=== PATIENT | female | born 1960 | race Caucasian/White ===

== ENCOUNTER 2020-04-09 10:56 | Emergency (ER) | payer BC, SELFPAY ==
--- NOTE | ~2020-04-09 | XR_ITS ---
EXAMINATION: XR chest 1V portable DATE: 04/09/2020 11:16 INDICATION: Dyspnea on exertion. COVID-19 positive. TECHNIQUE: A single frontal view of the chest was obtained. COMPARISON: None. FINDINGS: The chest demonstrates clear lungs without pneumonia, pleural effusion, or pneumothorax. Th e heart size is normal. IMPRESSION: 1. No acute cardiopulmonary disease. Reviewed, dictated and finalized at location A. OF OPERATION AND LOGISTICS
[2020-04-09 10:59] VITALS: BP 121/87; PULSE 77; RESP 16; TEMP 36.8; O2SAT 97
[2020-04-09 11:03] VITALS: PULSE 72
--- NOTE | 2020-04-09 11:06 | ECG_ITS ---
Measurements Intervals [place] Rate: 68 P: 70 MD: 116 QRS: 53 QRSD: 94 T: 24 QT: 366 QTc: 391 Interpretive Statements SINUS RHYTHM WITH SHORT MD INTERVAL BORDERLINE ST-T WAVE ABNORMALITY- ANTEROLAT/INF LEADS BASELINE WANDER- I, II, III, AVF BORDERLINE ECG Electronically Signed On 04-09-2020 17:57:47 WAREHOUSE SHIPPING ASSOCIATE by Daquan Ramos D.O.
--- NOTE | 2020-04-09 12:12 | ED.SOB ---
HPI - SOB/Dyspnea General Chief Complaint: Shortness of Breath/Dyspnea Stated Complaint: fever, shortness of breath, covid-19 Time Seen by Provider: 04/09/20 11:24 History of Present Illness HPI Narrative: Patient is a 60-year-old female who presents ER with shortness of breath. She was diagnosed with COVID-19 on 03/30/2020. Over the last 2 days she started developing fevers and chills and some shortness of breath with exertion. Mild cough nonproductive. No chest pain. Had recently traveled to [place]. Related Data Allergies Allergy/AdvReac Type Severity Reaction Status Date / Time meperidine Allergy Intermediate Vomiting Verified 04/09/20 11:01 propoxyphene Allergy Intermediate Vomiting Verified 04/09/20 11:01 Review of Systems Review of Systems: All systems reviewed & are unremarkable except as noted in HPI and below Constitutional: Constitutional: Reports chills, Reports fatigue and Reports fever(s) ENT: Denies nasal congestion and Denies sore throat Cardiovascular: Cardiovascular: Denies chest pain Respiratory: Respiratory: Reports cough, Reports dyspnea and Denies wheezing PMFSH Past Medical History Medical History (Updated 04/09/20 @ 12:19 by Avel Eid MD) Alopecia Hypothyroidism (acquired) Surgical History Surgical History (Updated 04/09/20 @ 12:15 by Avel Eid MD) No pertinent past surgical history Family History Family History Other Asthma Depression Family history of arthritis Family history of cardiovascular disease Family history of chronic obstructive pulmonary disease Family history of lung cancer Family history of malignant neoplasm Family history of pancreatic cancer Social History Social History Smoking status: Never smoker Alcohol intake: never Gender identity (if verbalized by the patient): Female Exam Narrative: Exam Narrative: GENERAL: Well-appearing, well-nourished, and in no acute distress. HEAD: Normocephalic, atraumatic. CHEST: Clear to auscultation. No respiratory distress. HEART: Regular rate and rhythm. Normal peripheral pulses. EXTREMITIES: Normal range of motion. No edema. NEURO: Alert and oriented x3. PSYCH: Normal mood and affect. Course Course Emergency Course: Patient informed of results. No hypoxia no wheezing. Discharge home. Vital Signs Vital signs: Vital Signs Temperature 98.2 F 04/09/20 10:59 Pulse Rate 77 04/09/20 10:59 Respiratory Rate 16 04/09/20 10:59 Blood Pressure 121/87 04/09/20 10:59 Pulse Oximetry 97 04/09/20 10:59 Temperature 98.2 F 04/09/20 10:59 Pulse Rate 72 04/09/20 11:03 Respiratory Rate 16 04/09/20 10:59 Blood Pressure 121/87 04/09/20 10:59 Pulse Oximetry 97 04/09/20 10:59 MDM - SOB/Dyspnea Imaging Data Radiologist's impression: ITS Impressions Chest X-Ray 04/09/20 11:18 IMPRESSION: 1. No acute cardiopulmonary disease. Discharge Plan Discharge Clinical Impression: Dyspnea Patient Disposition: Home, Self-Care Condition: Stable Instructions: Dyspnea (ED) Additional Instructions: Return the ER if you have worsening shortness of breath, you have audible wheezing, you cannot keep down food or water, you have additional concerns. Prescriptions: No Action levothyroxine [Synthroid] 25 mcg tablet 25 mcg PO DAILY 90 Days Qty: 90 RF: 3 Follow-up/Referrals: Jose Fagan Jr., MD [Primary Care Provider] - 1 Week
[2020-04-09 12:25] VITALS: BP 117/80; PULSE 87; RESP 24; O2SAT 98
== END 2020-04-09 12:26 | disposition home or self-care (01) ==
PROVIDERS: Emergency Provider Emergency Medicine; PCP Internal Medicine
DX: U07.1 COVID-19 (principal); R06.00 Dyspnea, unspecified; E03.9 Hypothyroidism, unspecified; R94.31 Abnormal electrocardiogram [ECG] [EKG]
CPT/HCPCS: 71045; 93005; 99283

== ENCOUNTER → 2020-05-08 10:14 | Outpatient (CLI) | payer BC, SELFPAY ==
--- NOTE | ~2020-05-08 | MM_ITS ---
EXAMINATION: MM screening sera BI w juan c HISTORY: Screening TECHNIQUE: Craniocaudal and mediolateral oblique 3-D tomosynthesis images were obtained and synthetic 2-D images were generated. CAD analysis was submitted and interpreted. COMPARISON: Comparison to multiple prior studies sequentially, with oldest reviewed study dated 05/02. BREAST PARENCHYMAL COMPOSITION: There are scattered areas of fibroglandular density. FINDINGS: There is no evidence of suspicious mass, calcification, or architectural distortion to sugg est malignancy in either breast. There has been no suspicious interval change. IMPRESSION: 1. No mammographic evidence of malignancy. 2. Recommend routine screening mammography in one year. BI-RADS Category 1: Negative Reviewed, dictated and finalized at location A. ICULUM AND INSTRUCTION DIRECTOR
== END ==
PROVIDERS: Visit Provider Obstetrics & Gynecology
DX: Z12.31 Encounter for screening mammogram for malignant neoplasm of breast (principal)
CPT/HCPCS: 77063; 77067

== ENCOUNTER → 2020-08-18 10:18 | Outpatient (CLI) | payer BC, SELFPAY ==
--- NOTE | ~2020-08-18 | US_ITS ---
EXAMINATION: US thyroid DATE: 08/18/2020 10:33 INDICATION: Goiter TECHNIQUE: Multiple ultrasound images of the thyroid were obtained. COMPARISON: None. FINDINGS: The right thyroid lobe measures 5.2 x 1.4 x 1.4 cm. The left thyroid lobe measures 3.2 x 1.0 x 1.3 c m. Thyroid isthmus measures 3 mm in thickness. Anechoic cystic TI RADS 1 nodules measuring 4 mm the r ight thyroid lobe and 3 mm in the left thyroid lobe. There is normal echotexture, echogenicity and va scular flow throughout the thyroid gland. IMPRESSION: 1. A couple likely benign subcentimeter cystic thyroid nodules which do not meet criteria for biopsy or follow-up. Recommend clinical follow-up with repeat imaging if there are changes on physical exam. Reviewed, dictated and finalized at location B. IMPRESSION: 1. A couple likely benign subcentimeter cystic thyroid nodules which do not osiris t criteria for biopsy or follow-up. Recommend clinical follow-up with repeat im aging if there are changes on physical exam.
== END ==
PROVIDERS: Visit Provider Internal Medicine Endocrinology, Diabetes & Metabolism
DX: E04.9 Nontoxic goiter, unspecified (principal)
CPT/HCPCS: 76536

== ENCOUNTER → 2020-09-23 09:40 | Outpatient (CLI) | payer BC, SELFPAY ==
--- NOTE | ~2020-09-23 | US_ITS ---
EXAMINATION:US venous doppler LE LT INDICATION:Varicose veins. TECHNIQUE: Multiple grayscale, color flow and Doppler images of the left lower extremity deep venous systems were obtained and reviewed. COMPARISON: Ultrasound dated 02/14/2016. FINDINGS: The common femoral, superficial femoral and popliteal veins demonstrate normal respiratory variation, augmentation and compressibility. Color flow is also seen within the posterior tibial, pe roneal, greater saphenous and profunda veins. IMPRESSION: 1: No lower extremity deep venous thrombosis. Reviewed, dictated and finalized at location A.
== END ==
PROVIDERS: PCP Family Medicine Sports Medicine; Visit Provider Obstetrics & Gynecology
DX: I83.90 Asymptomatic varicose veins of unspecified lower extremity (principal)
CPT/HCPCS: 93971

== ENCOUNTER 2020-11-10 12:13 | Outpatient (CLI) | payer BC, SELFPAY ==
--- NOTE | ~2020-11-10 | MR_ITS ---
EXAMINATION: MR shoulder LT w con DATE: 11/10/2020 13:55 INDICATION: Left shoulder pain TECHNIQUE: Magnetic resonance imaging (MRI) of the left shoulder was performed following intra-artic ular gadolinium contrast injection and without intravenous contrast. Details of the glenohumeral join t injection have been dictated separately. Sequences included axial T2-weighted FS FSE, axial T1-tracy ghted FS FSE, coronal oblique T1-weighted FS FSE, coronal oblique T2-weighted FSE, sagittal T2-weight ed FS FSE, sagittal T1-weighted FSE, and ABER (abduction external rotation) T1-weighted FS FSE. COMPARISON: Left shoulder radiographs dated 10/12/2020 and MRI dated 05/24/2019 FINDINGS: Coracoacromial arch: The acromion undersurface is curved in morphology (type II). There is prominent thickening of the cor acoacromial ligament at its acromial insertion. Mild acromioclavicular osteoarthritis. Rotator cuff: Moderate supraspinatus and mild infraspinatus tendinopathy. There is a small mild articular sided tea r at the anterior most and superior facet footplate of the supraspinatus tendon which measures approx imately 3 mm AP and involves less than one half of the tendon thickness. Mild subscapularis tendinopa thy. There is mild intrasubstance contrast imbibition in the distal tendon without evident articular sided tear defect and this may result from intrasubstance extravasation of contrast at the site of in jection. Normal rotator cuff muscle bulk and signal. Biceps tendon, glenoid labrum and glenohumeral cartilage: Long head of the biceps tendon is intact. Glenohumeral cartilage is normal. Small mild partial-thickn ess tear along the articular surface of the 12:30 position of the superior glenoid labrum. Remainder of the labrum is normal. Bones and other: Normal marrow signal with no edema, fracture or abnormal marrow replacing process. No abnormal fluid signal at the subacromial/subdeltoid bursa to suggest bursitis. IMPRESSION: 1. Moderate supraspinatus and mild infraspinatus and subscapularis tendinopathy with small mild artic ular sided tear at the anteriormost footplate of the supraspinatus tendon. 2. Small mild tear just anterior to the 12:00 position of the superior glenoid labrum. 3. Reviewed, dictated and finalized at location A. IMPRESSION: 1. Moderate supraspinatus and mild infraspinatus and subscapularis tendinopathy with small mild articular sided tear at the anteriormost footplate of the supr aspinatus tendon. 2. Small mild tear just anterior to the 12:00 position of the superior glenoid labrum. 3.
--- NOTE | ~2020-11-10 | XR_ITS ---
EXAMINATION: XR fl inj shoulder LT - MR/CT EXAM DATE: 11/10/2020 13:12 INDICATION: M25.512 - Pain in left shoulder . No history of dislocation. TECHNIQUE: This procedure was performed by Dr. Jason De Paz, radiologist. I discussed procedure inclu ding the risks, benefits and alternatives with the patient. Risks discussed included bleeding and inf ection. The patient understood the risks and agreed to proceed. A time-out was performed to verify the patient's name, date of , and procedure. The skin over lying the left shoulder joint was prepped and draped in usual sterile fashion. Anesthetic was admini stered with 2 milliliters 1% lidocaine subcutaneously. A 22 G needle was advanced under fluoroscopic guidance into the joint. A total of 10 mL of 1:200 of 529 mg/mL Multihance, 1:4 lidocaine, and 1:4 Omnipaque 240 was instilled. The needle was removed and the entry site was cleaned and dressed. Th ere were no immediate complications. Pulsed dose reduction fluoroscopy was used with fluoroscopic ti me of 0.1. The DAP for this procedure was 0.05 Gycm2. A total of 4 images obtained for the exam. Th e procedure was performed on 11/10/2020. FINDINGS: Real-time fluoroscopy demonstrates the needle and contrast in the left shoulder joint. IMPRESSION: Successful left shoulder joint injection for subsequent imaging. Reviewed, dictated and finalized at location A.
== END 2020-11-10 12:14 ==
LOC: MICIMG 12:14
PROVIDERS: Visit Provider Orthopaedic Surgery
DX: M25.512 Pain in left shoulder (principal); M75.102 Unspecified rotator cuff tear or rupture of left shoulder, not specified as traumatic
CPT/HCPCS: 23350; 73222; A9577; Q9966

== ENCOUNTER → 2020-12-08 08:05 | Outpatient (CLI) | payer BC, SELFPAY ==
--- NOTE | ~2020-12-08 | US_ITS ---
EXAMINATION: US right upper quadrant EXAM DATE: 12/08/2020 08:32 INDICATION: Elevated liver enzymes. TECHNIQUE: Multiple grayscale and Doppler images of the abdomen right upper quadrant were obtained (b y a technologist who performed the scan) and subsequently reviewed. There is no prior study for karla hartman. FINDINGS: The pancreatic head and body are normal in appearance. The pancreatic tail is not visualized. The l iver has normal echogenicity and contour. There are no focal liver lesions identified. There is no evidence of intrahepatic biliary duct dilation. Portal venous flow was seen in the hepatopedal, nor mal direction and has normal Doppler waveform. No right-sided hydronephrosis. Common bile duct measures 4 mm, which is normal. The gallbladder wall is normal in thickness, with ex pected amount of distention. No sonographic evidence of pericholecystic fluid. There is no cholelit hiases. Technologist performing exam reports patient did not demonstrate sonographic Medrano's sign. Please note that this sign is less reliable in patients who have received pain medication. IMPRESSION: Unremarkable abdominal ultrasound exam. Reviewed, dictated and finalized at location D.
== END ==
PROVIDERS: Visit Provider Internal Medicine Endocrinology, Diabetes & Metabolism
DX: R74.01 Elevation of levels of liver transaminase levels (principal)
CPT/HCPCS: 76705

== ENCOUNTER → 2021-03-30 12:05 | Outpatient (CLI) | payer OTHER, BC, SELFPAY ==
--- NOTE | ~2021-03-30 | US_ITS ---
EXAMINATION: US soft tissue head and neck DATE: 03/30/2021 12:28 INDICATION: Neck pain. Neck lumps. TECHNIQUE: Multiple grayscale and Doppler ultrasound images of the neck were obtained. COMPARISON: None FINDINGS: There are normal lymph nodes in the neck bilaterally. IMPRESSION: 1. No abnormal neck mass or lymphadenopathy. Reviewed, dictated and finalized at location A.
== END ==
PROVIDERS: Visit Provider Otolaryngology
DX: M54.2 Cervicalgia (principal)
CPT/HCPCS: 76536

== ENCOUNTER → 2021-07-16 10:38 | Outpatient (CLI) | payer OTHER, BC, SELFPAY ==
--- NOTE | ~2021-07-16 | MR_ITS ---
EXAMINATION: MR brain/brain stem wo/w con DATE: 07/16/2021 11:37 INDICATION: Paresthesia. Right facial numbness. TECHNIQUE: Magnetic resonance imaging (MRI) of the brain and brainstem was performed without and with 14 mL MultiHance intravenous contrast. Sequences included sagittal and axial T1-weighted FSE, axial diffusion-weighted FS EPI, axial T2*-weighted GRE, axial T2-weighted FLAIR Propeller, and axial T2-we ighted Propeller. Postcontrast sequences included axial and coronal T1-weighted FSE. Apparent diffusi on coefficient (ADC) maps were created. COMPARISON: Brain MRI 02/20/2005 FINDINGS: There is no intracranial hemorrhage, acute infarction, or abnormal intracranial mass lesion . The ventricles are normal in size. There is mild mucosal thickening in the ethmoid sinuses. The orb its are normal. The mastoid air cells are normal. IMPRESSION: 1. Normal brain. Reviewed, dictated and finalized at location A. P TREATMENT OPERATOR IMPRESSION: 1. Normal brain.
[2021-07-16 11:13] LABS: Estimated Glomerular Filt Rate > 60
== END ==
PROVIDERS: Visit Provider Family Medicine Sports Medicine
DX: R20.2 Paresthesia of skin (principal)
CPT/HCPCS: 70553; A9577

== ENCOUNTER → 2021-07-26 12:15 | Outpatient (CLI) | payer OTHER, BC, SELFPAY ==
--- NOTE | ~2021-07-26 | MM_ITS ---
EXAMINATION: MM screening sera BI w juan c HISTORY: Screening mammogram TECHNIQUE: Craniocaudal and mediolateral oblique 3-D tomosynthesis images were obtained and synthetic 2-D images were generated. CAD analysis was submitted and interpreted. COMPARISON: 05/08/2020, 05/20/2019, 05/13/2018 bilateral screening mammogram examinations BREAST PARENCHYMAL COMPOSITION: There are scattered areas of fibroglandular density. FINDINGS: There is no evidence of suspicious mass, calcification, or architectural distortion to sugg est malignancy in either breast. There has been no suspicious interval change. IMPRESSION: 1. No mammographic evidence of malignancy. 2. Recommend routine screening mammography in one year. BI-RADS Category 1: Negative Reviewed, dictated and finalized at location A. NO ASSISTANT MANAGER
== END ==
PROVIDERS: Visit Provider Obstetrics & Gynecology
DX: Z12.31 Encounter for screening mammogram for malignant neoplasm of breast (principal)
CPT/HCPCS: 77063; 77067

== ENCOUNTER 2021-08-30 07:58 | Outpatient (CLI) | payer OTHER, BC, SELFPAY ==
--- NOTE | ~2021-08-30 | XR_ITS ---
EXAMINATION: XR barium swallow modified DATE: 08/30/2021 08:44 INDICATION: Dysphagia. TECHNIQUE: The patient was given barium-containing material of multiple consistencies to swallow by lyubov lilly speech pathologist while I performed fluoroscopy. Dose-area product was 1.45 Gy-cm2. 1.5 minutes fluoroscopy time FINDINGS: Oral Stage: Within functional limits Pharyngeal Phase: Within functional limits Cervical/Esophageal Stage: Within functional limits IMPRESSION: Modified esophagram findings as above. Please [facility]. Reviewed, dictated and finalized at Location A. Reviewed, dictated and finalized at location A. IMPRESSION: Modified esophagram findings as above. Please refer to the speech t herapy report for specific recommendations.
--- NOTE | 2021-09-27 16:53 | STOPEVAL ---
MODIFIED BARIUM SWALLOW STUDY Thank you for referring Sally Tatum to [facility].? Attending Provider: Greg Morgan, Therapy Assessment Status Assessment Status Assessment Status Evaluation Pain Assessment Timing of Pain Assessment Timing of Pain Assessment Assessment Self Report Self Report Pain Level 0 Pain Score Pain Score 0: Self Report Modified Barium Swallow Evaluation Consistency Barium Pill Other Amount With water Method of Presentation Cup Oral Preparatory Symptoms Within Functional Limits Oral Phase Symptoms Within Functional Limits Pharyngeal Phase Symptoms Within Functional Limits Severity of Vallecular Residue None - 0% No Residue Severity of Pyriform Sinus Residue None - 0% No Residue 8 Point Laryngeal Penetration-Aspiration Material Does Not Enter Airway Scale Pharyngeal Phase Comments Pill fell into valleculae with first swallow; swallowed again and it moved into the esophagus with only a split- second delay between the first and second swallows. Cervical/Esophageal Symptoms Within Functional Limits Solid Consistency 5 mL Method of Presentation Spoon Oral Preparatory Symptoms Within Functional Limits Oral Phase Symptoms Within Functional Limits Pharyngeal Phase Symptoms Within Functional Limits Severity of Vallecular Residue None - 0% No Residue Severity of Pyriform Sinus Residue None - 0% No Residue 8 Point Laryngeal Penetration-Aspiration Material Does Not Enter Airway Scale Cervical/Esophageal Symptoms Within Functional Limits Mixed Consistency 5 mL Method of Presentation Spoon Oral Preparatory Symptoms Within Functional Limits Oral Phase Symptoms Within Functional Limits Pharyngeal Phase Symptoms Within Functional Limits Severity of Vallecular Residue None - 0% No Residue Severity of Pyriform Sinus Residue None - 0% No Residue 8 Point Laryngeal Penetration-Aspiration Material Does Not Enter Airway Scale Cervical/Esophageal Symptoms Within Functional Limits Pureed Consistency 5 mL Method of Presentation Spoon Oral Preparatory Symptoms Within Functional Limits Oral Phase Symptoms Within Functional Limits Pharyngeal Phase Symptoms Within Functional Limits Severity of Vallecular Residue None - 0% No Residue Severity of Pyriform Sinus Residue None - 0% No Residue 8 Point Laryngeal Penetration-Aspiration Material Does Not Enter Airway Scale Cervical/Esophageal Symptoms Within Functional Limits Pureed Consistency 3 mL Method of Presentation Spoon Oral Preparatory Symptoms Within Functional Limits Oral Phase Symptoms Within Functional Limits Pharynge
== END 2021-08-30 07:59 | disposition home or self-care (01) ==
LOC: ANHIMG 08:07
PROVIDERS: Visit Provider Otolaryngology
DX: R13.14 Dysphagia, pharyngoesophageal phase (principal)
CPT/HCPCS: 92611

== ENCOUNTER 2022-07-19 07:52 | Emergency (ER) | payer BC, SELFPAY ==
[2022-07-19] VITALS (22 sets, daily range): BP systolic 109–126; BP diastolic 70–92; PULSE 56–72; RESP 11–26; TEMP 36.6–37.1; O2SAT 97–100
--- NOTE | ~2022-07-19 | CT_ITS ---
EXAMINATION: CTA chest PE protocol DATE: 07/19/2022 10:02 INDICATION: Chest pain. TECHNIQUE: Computed tomography angiography (CTA) of the chest was performed with 100 mL Omnipaque-350 intravenous contrast timed to evaluate the pulmonary arteries. Coronal maximum intensity projection 3D-reconstructions were created by the technologist. Automated exposure control and iterative reconst ruction technique were employed. The dose-length product was 265.12 mGy-cm. COMPARISON: CT abdomen and pelvis 12/13/2015 FINDINGS: There is mild dependent atelectasis bilaterally. No pleural effusion. The heart size is nor mal. No pericardial effusion. There is no pulmonary embolus. There is moderate thoracic spondylosis. IMPRESSION: 1. No pulmonary embolus. Reviewed, dictated and finalized at location A. PLANT MANAGER IMPRESSION: 1. No pulmonary embolus.
--- NOTE | ~2022-07-19 | XR_ITS ---
EXAMINATION: XR chest 2V DATE: 07/19/2022 08:32 INDICATION: Chest pain TECHNIQUE: PA and lateral views of the chest are obtained. COMPARISON: 04/09/2020 FINDINGS: The lungs are free of acute opacities. No pleural effusion or pneumothorax. The cardiomedia stinal silhouette is normal. There is moderate thoracic spondylosis. IMPRESSION: 1. No acute cardiopulmonary abnormality. Reviewed, dictated and finalized at location B. R ADJUSTER
--- NOTE | 2022-07-19 08:00 | ECG_ITS ---
Measurements Intervals [place] Rate: 58 P: 52 MI: 146 QRS: 37 QRSD: 102 T: 40 QT: 389 QTc: 383 Interpretive Statements SINUS BRADYCARDIA OTHERWISE NORMAL ECG NO PREVIOUS ECG AVAILABLE FOR COMPARISON Electronically Signed On 07-19-2022 15:24:29 CROSS COUNTRY COACH by Ross Sanchez M.D.
[2022-07-19 08:21] LABS: Basophils Absolute Auto 0.1 K/mm3 (0.0-0.1); Basophils Percent Auto 0.8 % (0.2-1.2); Eosinophils Absolute Auto 0.2 K/mm3 (0-0.3); Eosinophils Percent Auto 3.1 % (0-4.4); Hematocrit 45.9 % (37.0-47.0); Hemoglobin 14.5 g/dL (12.0-15.0); Immature Granulocyte Absolute 0.02 K/mm3 (0.00-0.031); Immature Granulocyte Percent A 0.3 % (0-0.5); Lymphocytes Absolute Auto 2.68 K/mm3 (0.9-3.2); Lymphocytes Percent Auto 41.1 % (18.3-44.2); Mean Corpuscular HGB Conc 31.6 g/dl (32-36); Mean Corpuscular Hemoglobin 30.5 pg (26-34); Mean Corpuscular Volume 96.6 fl (80-100); Mean Platelet Volume 9.6 fl (7.4-10.4); Monocytes Absolute Auto 0.5 K/mm3 (0.1-0.6); Monocytes Percent Auto 7.5 % (2.6-8.5); Neutrophils Absolute Auto 3.1 K/mm3 (1.3-6.7); Neutrophils Percent Auto 47.2 % (45.5-73.1); Platelet Count Result 223 k/mm3 (150-375); Red Blood Count 4.75 M/mm3 (4.2-5.4); Red Cell Distribution Width 12.9 % (11.5-14.5); White Blood Count 6.5 K/mm3 (4.5-10.0)
[2022-07-19 08:30] LABS: Alanine Aminotransferase 53 U/L (6-35); Alkaline Phosphatase 111 U/L (38-126); Anion Gap 4 mmol/L (8-16); Aspartate Amino Transferase 37 U/L (14-36); Bilirubin,Total 0.4 mg/dL (0.2-1.3); Blood Urea Nitrogen 10 mg/dL (7-17); Calcium 9.6 mg/dL (8.4-10.2); Carbon Dioxide 32 mmol/L (22-30); Chloride 104 mmol/L (98-107); Estimated CRCL calculation 56 ml/min; Estimated Glomerular Filt Rate > 60; Glucose 76 mg/dL (65-110); Lipase 117 U/L (23-300); Potassium 3.4 mmol/L (3.4-5.0); Sodium 140 mmol/L (137-145)
[2022-07-19 08:33] LABS: INR 0.9; Prothrombin Time 11.5 Seconds (11.1-14.7)
--- NOTE | 2022-07-19 08:34 | PC.NURSE ---
Attempted to give pt 4 81mg chewable aspirin and pt refused stating that she has her own and does not want her insurance charging her. Verified that the medication the patient had was chewable aspirin 81mg/tablet. Notified Dr. Terrazas. Dr. Terrazas ok with the patient taking her own chewable aspirin.
[2022-07-19 08:42] LABS: Troponin I < 0.012 ng/mL (0.000-0.034)
--- NOTE | 2022-07-19 08:47 | ED.GENADULT ---
HPI - General Adult General Chief complaint: Chest Pain Stated complaint: cp since yest Time Seen by Provider: 07/19/22 07:59 History of Present Illness HPI narrative: 62-year-old female presenting to the emergency department for evaluation of substernal chest pain. Patient states she had onset of substernal chest pain yesterday that lasted about 15 minutes. Patient states during this time she did have some pain that radiated to her jaw. Patient denies any associated nausea vomiting diaphoresis with this pain. Patient was at rest when the pain occurred. Patient states later in the evening she did have some back pain but this was not associated with any chest pain. Patient does have a history of hypertension but denies any history of high cholesterol. Patient denies any prior history of PR. Patient has had multiple stress tests over the last 9 years and has follow-up with Dr. Sanchez. Patient also reports that she did have a playground monitor due to sensation of heart palpitations, patient reports that the monitor was negative. At rest in the room patient denies any current chest pain or shortness of breath. Patient does have history of varicose veins but denies any prior history of PE or DVT. Related Data Allergies Allergy/AdvReac Type Severity Reaction Status Date / Time propoxyphene Allergy Intermediate Vomiting Verified 02/19/21 10:57 meperidine AdvReac Severe NAUSEA Verified 02/19/21 10:57 VOMITING, REFERRED PAIN TO SHOULDER AND JEWISH midazolam AdvReac Severe NAUSEA Verified 02/19/21 10:57 VOMITING, REFERRED PAIN TO SHOULDER AND JEWISH Review of Systems Review of Systems: CONSTITUTIONAL: Denies fever, chills, or sweats. EYES: Denies visual changes, redness, or discharge. ENT: Denies rhinorrhea, congestion, sore throat, or otalgia. CARDIOVASCULAR: See HPI RESPIRATORY: Denies cough or dyspnea. GASTROINTESTINAL: Denies abdominal pain, nausea, vomiting, or diarrhea. GENITOURINARY: Denies dysuria or hematuria. SKIN: Denies rash or itching. MUSCULOSKELETAL: Denies back pain, joint pain, or myalgia. NEUROLOGIC: Denies headache, numbness, or weakness. [facility] Past Medical History Medical History Alopecia Hypothyroidism (acquired) Left shoulder pain Tendinitis of left rotator cuff Surgical History Surgical History No pertinent past surgical history Family History Family History Other Asthma Depression Family history of arthritis Family history of cardiovascular disease Family history of chronic obstructive pulmonary disease Family history of lung cancer Family history of malignant neoplasm Family history of pancreatic cancer Social History Social History Alcohol intake: never Substance use: never Living arrangements: with family Occupation/Education: occupation Gender identity (if verbalized by the patient): Female Exam Narrative: APPEARANCE: Well appearing, no pain, no distress, well-nourished. HEAD: normocephalic, atraumatic. EYES: PERRLA/EOMI, conjunctivae clear. NOSE: Normal no drainage EARS:TMS clear with good light reflex. THROAT: Pharynx clear, no exudate. NECK: Supple. No adenopathy, no masses. RESPIRATORY: Airway patent, respirations nonlabored. Clear to auscultation bilaterally, no rales, rhonchi, wheezing. CARDIOVASCULAR: Regular rate and rhythm without murmurs rubs or gallops. No reproducible chest wall tenderness to palpation ABDOMINAL: Soft, nontender, nondistended, normal bowel sounds MUSCULOSKELETAL: Moves all extremities. Strength/ROM intact, No edema, No calf tenderness. NEURO: Alert. Cranial nerves II through XII intact. Grossly intact SKIN: Warm, dry. Normal Color Course Course Emergency Co
[2022-07-19 09:04] LABS: D Dimer 0.54 ug/mL (<0.48)
[2022-07-19 11:57] LABS: Troponin I < 0.012 ng/mL (0.000-0.034)
== END 2022-07-19 13:11 | disposition home or self-care (01) ==
PROVIDERS: Emergency Provider Emergency Medicine
DX: R07.2 Precordial pain (principal); E03.9 Hypothyroidism, unspecified; R00.1 Bradycardia, unspecified
CPT/HCPCS: 36415; 71046; 71275; 80053; 83690; 84484; 85025; 85380; 85610; 85730; 93005; 99284; Q9967

== ENCOUNTER → 2022-09-02 10:03 | Outpatient (CLI) | payer BC, SELFPAY ==
--- NOTE | ~2022-09-02 | MM_ITS ---
EXAMINATION: MM screening sera BI w juan c HISTORY: Screening mammogram TECHNIQUE: Craniocaudal and mediolateral oblique 3-D tomosynthesis images were obtained and synthetic 2-D images were generated. CAD analysis was submitted and interpreted. COMPARISON: July 26, 2021, May 08, 2020, May 10, 2019 bilateral screening mammogram exami nations BREAST PARENCHYMAL COMPOSITION: There are scattered areas of fibroglandular density. FINDINGS: There is no evidence of suspicious mass, calcification, or architectural distortion to sugg est malignancy in either breast. There has been no suspicious interval change. IMPRESSION: 1. No mammographic evidence of malignancy. 2. Recommend routine screening mammography in one year. BI-RADS Category 1: Negative Reviewed, dictated and finalized at location A.
== END ==
PROVIDERS: PCP Family Medicine; Visit Provider Obstetrics & Gynecology
DX: Z12.31 Encounter for screening mammogram for malignant neoplasm of breast (principal)
CPT/HCPCS: 77063; 77067

== ENCOUNTER 2023-09-19 10:12 | Outpatient (CLI) | payer BC, SELFPAY ==
--- NOTE | ~2023-09-19 | MM_ITS ---
EXAMINATION: MM screening sera BI w juan c HISTORY: Screening TECHNIQUE: Craniocaudal and mediolateral oblique 3-D tomosynthesis images were obtained and synthetic 2-D images were generated. CAD analysis was submitted and interpreted. COMPARISON: Comparison to multiple prior studies sequentially, with oldest reviewed study dated 12/2019. BREAST PARENCHYMAL COMPOSITION: Not dense: There are scattered areas of fibroglandular density. FINDINGS: There is no evidence of suspicious mass, calcification, or architectural distortion to sugg est malignancy in either breast. There has been no suspicious interval change. IMPRESSION: 1. No mammographic evidence of malignancy. 2. Recommend routine screening mammography in one year. BI-RADS Category 1: Negative Reviewed, dictated and finalized at location B.
== END 2023-09-19 10:13 ==
LOC: MICIMG 10:13
PROVIDERS: PCP Obstetrics & Gynecology; Visit Provider Obstetrics & Gynecology
DX: Z12.31 Encounter for screening mammogram for malignant neoplasm of breast (principal)
CPT/HCPCS: 77063; 77067

== ENCOUNTER 2024-05-06 09:24 | Outpatient (CLI) | payer BC, SELFPAY ==
--- NOTE | ~2024-05-06 | XR_ITS ---
XR_[id number]_CR Ordering provider: Cristiana Key PA-C History: . M54.2 - Cervicalgia . Comparison: None. FINDINGS: VERTEBRAL BODIES: Normal height and alignment. No visible fracture or subluxation. The dens is intact . DISK SPACES: Narrowing of the disc C4-C5, C5-C6 and C6-C7 of mild to moderate degree. Multilevel uncovertebral joint osteoarthritic changes. PARASPINOUS SOFT TISSUES: No prevertebral soft tissue swelling. IMPRESSION: No acute osseous abnormality cervical spine. Multilevel degenerative disc disease. Reviewed, dictated and finalized at location A. RTISING STRATEGIST
== END 2024-05-06 09:25 | disposition home or self-care (01) ==
LOC: MICIMG 09:26
PROVIDERS: PCP Family Medicine; Visit Provider Physician Assistant Medical
DX: M50.321 Other cervical disc degeneration at C4-C5 level (principal); M50.322 Other cervical disc degeneration at C5-C6 level; M50.323 Other cervical disc degeneration at C6-C7 level
CPT/HCPCS: 72040

== ENCOUNTER 2024-09-27 10:08 | Outpatient (CLI) | payer BC, SELFPAY ==
--- NOTE | ~2024-09-27 | MM_ITS ---
EXAMINATION: MM screening sera BI w juan c HISTORY: Screening mammogram TECHNIQUE: Craniocaudal and mediolateral oblique 3-D tomosynthesis images were obtained and synthetic 2-D images were generated. CAD analysis was submitted and interpreted. COMPARISON: 09/19/2023, 09/02/2022, 07/26/2021 BREAST PARENCHYMAL COMPOSITION:Not Dense. There are scattered areas of fibroglandular density. FINDINGS: No suspicious mass, calcification, or architectural distortion are identified in either alda ast to suggest malignancy. There has been no suspicious interval change. IMPRESSION: No mammographic evidence of malignancy. Recommend routine screening mammography in one year. BI-RADS Category 1: Negative Reviewed, dictated and finalized at location .
== END 2024-09-27 10:09 | disposition home or self-care (01) ==
LOC: MICIMG 10:09
PROVIDERS: PCP Family Medicine; Visit Provider Obstetrics & Gynecology
DX: Z12.31 Encounter for screening mammogram for malignant neoplasm of breast (principal)
CPT/HCPCS: 77063; 77067

== ENCOUNTER 2025-05-06 00:51 | Day surgery (SDC) | payer BC, SELFPAY ==
[2025-04-14 15:07] VITALS: BMI 26.9
--- OUTSIDE RECORDS SUMMARY | 2025-05-06 00:54 | XMS_ITS | Patient Health Record ---
Author Organization [facility] Address [address] [place], [place] [id number] Care Team Providers Care Janitorial Tech Name Role Phone BAY MOON Unavailable [phone] Bairon Yi Unavailable Unavailable Reason For Referral No Information Medications Medication SIG (Take, Route, Frequency, Duration) Notes Start Date End Date Status Nabumetone 500 MG Oral Tablet ORAL nabumetone 500 MG Oral TabletOriginal Medicationnabumetone 500 MG Oral Tablet *Reorder from Tresata for eRx and Interaction Alerts* 07/07/2014 Active Social History Social History Additional Details Category Social Info Options Details Migrated Social History Migrated Social History History of tobacco use : , Smoking Status : Never smoked Plan Of Treatment No Information Insurance Providers Payer Name Payer Address Payer Phone Subscriber Number Group Number Insured Name Patient Relationship to Insured Coverage Start Date Coverage End Date [facility] ([facility]) ATTN CLAIMS [address] [place] [address] [id number] SCOTT BLAND Self - patient is the insured
--- OUTSIDE RECORDS SUMMARY | 2025-05-06 00:54 | XMS_ITS | Clinical Summary ---
Author Organization [facility] Address [address] [place] [address] Care Team Providers Care Holiday Detector Operator Name Role Phone Hieu Newby MD Primary Care Provider [phone] Allergies Active Allergy Reactions Criticality Noted Date Comments Midazolam Nausea and Vomiting Low 06/23/2018 Propoxyphene Nausea and Vomiting Low 06/23/2018 Medications levothyroxine 50 MCG tablet Take 1 tablet (50 mcg total) by mouth every morning. 1 Active NYSTOP powder Apply topically 2 (two) times daily as needed. 4 Active selenium sulfide (SELSUN) 2.5 % lotionIndicatio ns:Tinea versicolor Apply to skin and lather then rinse after 10 minutes once daily until product is gone 118 mL 4 Active Additional Information Patient not taking.Reported on 05/24/2024 meclizine (ANTIVERT) 12.5 MG tablet Take 1 tablet (12.5 mg total) by mouth 3 (three) times daily as needed. 4 Active predniSONE (DELTASONE) 20 MG tabletIndicatio ns:Allergic contact dermatitis due to plants, except food 2 pills once daily for 5 days then one pill daily 5 15 tablet 4 Active Active Problems Problem Noted Date Diagnosed Date Other chest pain 04/22/2023 Dizziness and giddiness 08/12/2021 Pharyngoesophageal dysphagia 08/12/2021 Varicose veins of left lower extremity 1 Anterior neck pain 03/21/2021 Globus sensation 03/21/2021 Multiple thyroid nodules 03/21/2021 Pharyngeal dysphagia 03/21/2021 Palpitations 06/23/2018 Immunizations Immunization Administration Dates Next Due Fluzone Adult - >Age 3 (Pref illed Syringe) 09/14/2020(Deferred: Patient Refused) MODERNA COVID-19 (NAUMKEAG OPERATOR FREDY SERA), MRNA, LNP-S, PF, 50 MCG/ 0.25 ML DOSE 05/04/2021 PFIZER COVID-19 (ORIGINAL FO RMULATION, PURPLE CAP) mRNA, LNP-S, PF, 30 MCG/0.3 ML DOSE 09/04/2020,08/04/2020 Tdap (Adacel) 09/02/2019 Family History Medical History Relation Comments Cancer Father Pancreatic CA Diabetes Father COPD Mother Diabetes Mother Asthma Sister 1 Cancer Sister 1 Lung CA Asthma Sister 2 Relation Status Comments Father Mother Sister 1 Sister 2 Social History Tobacco Use Types Packs/Day Years Used Date Smoking Tobacco: Never Smokeless Tobacco: Never Tobacco Cessation:Counseling Given: No Alcohol Use Standard Drinks/Week Comments Never 0 (1 standard drink = 0.6 oz pur e alcohol) AUDIT-C Answer Date Recorded Frequency of Alcohol Consumption Never 09/02/2019 Average Number of Drinks Not on file Frequency of Binge Drinking Not on file 07/2019 PHQ-2 Answer Date Recorded Patient Health Questionnaire-2 Score 0 01/01/2024 Comments No Sex and Gender Information Value Date Recorded Sex Assigned at Not on file Legal Sex Female 2:41 PM CDT Gender Identity Not on file Sexual Orientation Not on file Last Filed Vital Signs Vital Sign Reading Time Taken Comments Blood Pressure 122/72 05/24/2024 7:19 AM SECRETARY BOOKKEEPER Pulse 71 05/24/2024 7:19 AM SECRETARY BOOKKEEPER Temperature 36.2 C (97.2 F) 05/24/2024 7:19 AM SECRETARY BOOKKEEPER Respiratory Rate 20 05/24/2024 7:19 AM SECRETARY BOOKKEEPER Oxygen Saturation 100% 05/24/2024 7:19 AM SECRETARY BOOKKEEPER Inhaled Oxygen Concentration - - Weight 74.8 kg (165 lb) 05/24/2024 7:19 AM SECRETARY BOOKKEEPER Height 162.6 cm (5' 4) 05/24/2024 7:19 AM SECRETARY BOOKKEEPER Body Mass Index 28.32 05/24/2024 7:19 AM SECRETARY BOOKKEEPER Plan of Treatment Health Maintenance Due Date Last Done Comments Cervical Cancer Screening Pa p Smear (Age 30 to 64) Every 3 Years 1961 Colorectal Cancer Screening Colonoscopy (10 Years) 1961 Hepatitis C 1979 Cervical Cancer Screening Pa p with HPV Testing (Age 30 to 64) Every 5 Years 1991 Cervical Cancer Screening wi th HPV 1991 Pneumococcal Vaccine: 50+ Years (1 of 1 - PCV) 2011 Zoster Vaccines (1 of 2) 2011 Annual Physical 09/14/2021 09/14/2020 Mammogram Screening 05/08/2022 05/08/2020, 05/10/2019 PHQ-2 (Physician [place]) 06/02/2024 01/01/2024 COVID-19 Vaccine (4 - 2024-2 6 season) 2025 05/04/2021, 09/04/2020, 08/04/2020 Influenza Adult (#1) 2025 DTaP, Tdap and Td Vaccines ( 2 - Td or Tdap) 09/01/2029 09/02/2019 RSV Immunization or 60+ Years (1 - 1-dose 75+ series) 2036 Hepatitis A Vaccines Aged Out No long er eligible based on patient's age to complete this topic Meningococcal B Vaccine Aged Out No l onger eligible based on patient's age to complete this topic Meningococcal Vaccine Aged Out No sebastien maria t eligible based on patient's age to complete this topic RSV Immunizations Under 20 Months Aged Out No longer eligible b ased on patient's age to complete this topic Procedures Procedure Name Priority Date/Time Associated Diagnosis Comments MAMMOGRAM GENERIC (SCAN ORDER) 05/08/2020 from Last 3 Months or Most Recently Relevant to Health Maintenance Results * MAMMOGRAM GENERIC (05/08/2020) Anatomical Region Laterality Modality Other 05/08/2020 Narrative 05/08/2020 Ordered by an unspecified provider. us Documents Scanned SCANNING Final Result from Last 3 Months or Most Recently Relevant to Health Maintenance Insurance [facility] Care Teams Holiday Detector Operator Relationship Specialty Start Date End Date Hieu Newby MD [address] [place] [address] PCP - General FAMILY PRACTICE 12/08/22
--- OUTSIDE RECORDS SUMMARY | 2025-05-06 00:54 | XMS_ITS | Clinical Summary ---
Author Organization [address] Address [address] [place] [id number] Care Team Providers Care Real Estate Accountant Name Role Phone See Vasquez MD Unavailable [phone] Hieu Newby MD Primary Care Provider Allergies Active Allergy Reactions Criticality Noted Date Comments Propoxyphene Nausea & Vomiting Low 06/23/2018 Midazolam Nausea & Vomiting Low 06/23/2018 Medications levothyroxine (SYNTHROID) 50 mcg tablet Take 1 tablet (50 mcg total) by mouth every morning 2 Active methylPREDNISolo ne (Medrol, Severiano,) 4 mg DosepackIndicati ons:Rash and nonspecific skin eruption follow package directions 1 packet 5 Active Additional Information Patient not taking.Reported on 10/25/2024 Active Problems Problem Noted Date Diagnosed Date Other chest pain 04/22/2023 Dizziness and giddiness 08/12/2021 Pharyngoesophageal dysphagia 08/12/2021 Varicose veins of left lower extremity Pharyngeal dysphagia 03/21/2021 Anterior neck pain 03/21/2021 Multiple thyroid nodules 03/21/2021 Globus sensation 03/21/2021 Palpitations 06/23/2018 Immunizations Immunization Administration Dates Next Due Pfizer SARS-CoV-2 Monovalent Vaccination (12+ Yrs) PURPLE 09/04/2020,08/04/2020 Surgical History Surgery Date Site/Laterality Comments TONSILLECTOMY OOPHORECTOMY Medical History Medical History Date Comments Hyperlipidemia Thyroid disease Diverticulitis Arthritis Family History Medical History Relation Name Comments Diabetes Brother 1 Leodan Pancreatic cancer Father Arthritis Mother Lisa Diabetes Mother Lisa heart problems Mother Lisa Asthma Sister 1 Gregoria Cancer Sister 2 Laura Relation Name Status Comments Brother 1 Leodan Alive Brother 2 Alive Father (Age 67) Mother Lisa (Age 87) Sister 1 Gregoria Alive Sister 2 Laura Alive Social History Tobacco Use Types Packs/Day Years Used Date Smoking Tobacco: Never Smokeless Tobacco: Never Alcohol Use Standard Drinks/Week Comments No 0 (1 standard drink = 0.6 oz pur e alcohol) Comments Unknown Sex and Gender Information Value Date Recorded Sex Assigned at Not on file Legal Sex Female 7:16 PM PRODUCT MARKETING DIRECTOR Gender Identity Not on file Sexual Orientation Not on file Last Filed Vital Signs Vital Sign Reading Time Taken Comments Blood Pressure 129/77 10/25/2024 12:28 PM CDT Pulse 77 10/25/2024 12:28 PM CDT Temperature 36.9 C (98.5 F) 10/25/2024 12:28 PM CDT Respiratory Rate 20 10/25/2024 12:28 PM CDT Oxygen Saturation 99% 10/25/2024 12:28 PM CDT Inhaled Oxygen Concentration - - Weight 70.8 kg (156 lb) 10/25/2024 12:28 PM CDT Height 162.6 cm (5' 4) 09/18/2024 9:30 AM CDT Body Mass Index 26.78 09/18/2024 9:30 AM CDT Plan of Treatment Health Maintenance Due Date Last Done Comments Breast Cancer Screening-Mammogram 1961 Cervical Cancer Screening 1961 Colon Cancer Screening-Colonoscopy 1961 Depression Screening 1961 Hepatitis C Screening 1961 Hepatitis B Screening 1979 Regular Well Visit/Exam 18-64 1979 Zoster Vaccine (1 of 2) 2011 Covid-19 Vaccine ( - 2024-2 6 season) 2025 05/04/2021, 09/04/2020, 08/04/2020 Influenza Vaccine (#1) 2025 DTaP/Tdap/Td Vaccine (2 - Td or Tdap) 09/01/2029 09/02/2019 Pneumococcal vaccine <65 Aged Out No longer eligible based on patient's age to complete this topic Insurance [employer] [place] [facility] Address: [address] [place] [address] [employer] ACCESS CHOICE [place] [employer] [place] [employer] ACCESS CHOICE Care Teams Real Estate Accountant Relationship Specialty Start Date End Date Hieu Newby MD [address] [place] [address] PCP - General Family Medicine 04/22/23 See Vasquez MD [address] [place] [address] Family Medicine 03/13/21
[2025-05-06 11:53] VITALS: BP 128/71; PULSE 71; RESP 18; TEMP 37.1; O2SAT 99
[2025-05-06] MEDS: LACTATED RINGERS 1,000 ML 150 ML IV CONT (12:32)
--- NOTE | 2025-05-06 13:12 | PM.IMHP2 ---
H&P: HPI History of Present Illness Date/Time: 05/06/25 13:12 Chief Complaint: Screening colonoscopy Narrative: This is the patient's 2nd screening colonoscopy. There are no GI symptoms and there is no family history of colorectal cancer. Review of Systems Review of Systems: All systems reviewed & are unremarkable except as noted in HPI and below PMFSH Past Medical History Medical History Left shoulder pain Alopecia Hypothyroidism (acquired) Tendinitis of left rotator cuff Surgical History Surgical History History of tonsillectomy History of right oophorectomy Family History Family History Other Asthma Depression Family history of arthritis Family history of cardiovascular disease Family history of chronic obstructive pulmonary disease Family history of lung cancer Family history of malignant neoplasm Family history of pancreatic cancer Social History Social History Smoking status: Never smoker Alcohol intake: never Substance use: never Substance use type: does not use Living arrangements: with family Occupation/Education: occupation Gender identity (if verbalized by the patient): Female Sexual Orientation (if Verbalized by the Patient): Straight or Heterosexual Spiritual care concerns: No Meds Home Medications and Allergies Home Medications ?Medication ?Instructions ?Recorded ?Confirmed ?Type Synthroid 25 mcg tablet 25 mcg PO DAILY 90 days #90 tabs 04/19/20 05/06/25 Rx (levothyroxine) valacyclovir 500 mg tablet 500 mg PO DAILY 08/28/22 04/21/25 History Allergies Allergy/AdvReac Type Severity Reaction Status Date / Time propoxyphene Allergy Intermediate Vomiting Verified 04/21/25 08:01 meperidine AdvReac Severe NAUSEA Verified 04/21/25 08:01 VOMITING, REFERRED PAIN TO SHOULDER AND MORMON midazolam AdvReac Severe NAUSEA Verified 04/21/25 08:01 VOMITING, REFERRED PAIN TO SHOULDER AND MORMON Vital Signs Vital Signs - 24 hr 05/06/25 11:53 Temperature 98.7 F Pulse Rate 71 Respiratory Rate 18 Blood Pressure 128/71 Pulse Oximetry 99 Oxygen Delivery Room Air Exam Const: General: cooperative and healthy appearing Resp: Effort & Inspection: normal respiratory effort and able to speak in complete sentences Auscultation: clear to auscultation bilaterally Cardio: Rate: regular rate Rhythm: regular rhythm GI: Inspection: normal to inspection GI Palp: No No hepatosplenomegaly present Auscultation: normal bowel sounds Rectal Exam: deferred Skin: General skin exam: normal color Psych: Appearance: grossly normal Mental Status: mental status grossly normal Assessment and Plan Assessment and plan (1) Encounter for screening colonoscopy: Code(s): Z12.11 - Encounter for screening for malignant neoplasm of colon Status: Acute Assessment and Plan: The patient is deemed a good candidate for the procedure. Consent signed. Will proceed. Prior Studies I have reviewed the following patient records and this information was taken into consideration when formulating the assessment and plan.: previous labs, previous ER visits, previous hospitalizations and previous clinic visits
--- NOTE | 2025-05-06 13:16 | WPDANESEPPF ---
Anes - Initial Pre Proc Eval Procedure: Operation Date: 05/06/25 13:30 Proposed Procedures p Screening Colonoscopy - Tahir Redding MD Date/Time: 05/06/25 13:16 Surgeon: Tahir Redding MD Pre Op Diagnosis: Encounter for screening for malignant neoplasm of Patient Data Age: 65 Gender: F Height: 1.63 m Weight: 69.7 kg Last Vital Signs Temp 98.7 F 05/06/25 11:53 Pulse 71 05/06/25 11:53 Resp 18 05/06/25 11:53 BP 128/71 05/06/25 11:53 Pulse Ox 99 05/06/25 11:53 O2 Del Method Room Air 05/06/25 11:53 Allergies Allergy/AdvReac Type Severity Reaction Status Date / Time propoxyphene Allergy Intermediate Vomiting Verified 04/21/25 08:01 meperidine AdvReac Severe NAUSEA Verified 04/21/25 08:01 VOMITING, REFERRED PAIN TO SHOULDER AND BAPTIST midazolam AdvReac Severe NAUSEA Verified 04/21/25 08:01 VOMITING, REFERRED PAIN TO SHOULDER AND BAPTIST Home Medications ?Medication ?Instructions ?Recorded ?Confirmed ?Type Synthroid 25 mcg tablet 25 mcg PO DAILY 90 days #90 tabs 04/19/20 05/06/25 Rx (levothyroxine) valacyclovir 500 mg tablet 500 mg PO DAILY 08/28/22 04/21/25 History Patient hx anesthesia problems: none Family hx anesthesia problems: none Results Review: All pre-operative results and documents have been reviewed as part of the pre-operative evaluation. [facility] Past Medical History Medical History Left shoulder pain Alopecia Hypothyroidism (acquired) Tendinitis of left rotator cuff Surgical History Surgical History History of tonsillectomy History of right oophorectomy Family History Family History Other Asthma Depression Family history of arthritis Family history of cardiovascular disease Family history of chronic obstructive pulmonary disease Family history of lung cancer Family history of malignant neoplasm Family history of pancreatic cancer Social History Social History Smoking status: Never smoker Alcohol intake: never Substance use: never Substance use type: does not use Living arrangements: with family Occupation/Education: occupation Gender identity (if verbalized by the patient): Female Sexual Orientation (if Verbalized by the Patient): Straight or Heterosexual Spiritual care concerns: No Anes - Eval Final PreProcedure Day of Procedure 05/06/25 13:16 Patient weight: normal Lungs: normal air movement Airway: Mallampati scale class II and special considerations (Many crowns. ) Neurological: alert and oriented Last oral intake: >/= 8 hours ASA classification: II Emergent: no Anesthetic plan: proceed Anesthesia type and monitoring: general GIVS and standard monitoring Results Review: All pre-operative results and documents have been reviewed as part of the pre-operative evaluation. Hypothyroidsim, active w walking, occ treadmill, outdoors, no cp or sob. Informed Consent: The patient's anesthetic plan and its attendant risks and benefits were discussed with the patient/family/POA. Questions were solicited and answers provided to the satisfaction of the patient/family/POA.
--- NOTE | 2025-05-06 13:32 | S_PTH ---
PATIENT: Sally Whitlock LOC: [facility]#:[id number] AGE/SX: 65/F ROOM: RE05/06/[address]: Tahir Redding MD : 1960 BED: DIS: 05/06/2025 SPEC #: [id number] RECD: 05/06/25 14:22 STATUS: YOSSI REQ #: [id number] EVA: 05/06/25 13:[address]: Tahir Redding DEPT: [facility] Surgical RECD BY: Anais Triplett ENTERED: 05/06/25 14:23 SP TYPE: Surgical OTHR DR: Hieu Newby MD Tissues: A - Colon Polypectomy Procedures: Hematoxylin and Eosin Stain Gross and Microscopic Level 4
[2025-05-06 13:39] VITALS: BP 100/67; PULSE 58; RESP 21; O2SAT 100
[2025-05-06 13:49] VITALS: BP 116/74; PULSE 63; RESP 20; O2SAT 100
[2025-05-06 13:59] VITALS: BP 118/77; PULSE 56; RESP 19; O2SAT 100
== END 2025-05-06 14:11 | disposition home or self-care (01) ==
PROVIDERS: PCP Family Medicine; Referring Provider Student in an Organized Health Care Education/Training Program; Visit Provider Internal Medicine Gastroenterology
PROC: 0DJD8ZZ Inspection of Lower Intestinal Tract, Via Natural or Artificial Opening Endoscopic (ICD-10-PCS; CPT 45378; principal; 2025-05-06 13:30)
DX: Z12.11 Encounter for screening for malignant neoplasm of colon (principal); D12.0 Benign neoplasm of cecum; K57.30 Diverticulosis of large intestine without perforation or abscess without bleeding; K64.8 Other hemorrhoids
CPT/HCPCS: 45385; 88305; J2003; J2704; J7120